=== PATIENT | male | born 1965 | race Asian ===

== ENCOUNTER 2020-02-17 01:59 | Emergency (ER) | payer OTHER ==
[~2020-02-17] VITALS: Ht 172.7 cm; Wt 97.5 kg
[2020-02-17 02:26] LABS: PLATELET COUNT 271 K/uL (142-355)
[2020-02-17 02:43] LABS: POTASSIUM 3.5 mmol/L (3.6-5.2)
[2020-02-17 03:45] VITALS: BP 168/96; TEMP 97.6
[2020-02-17] MEDS ORDERED: ALLO300T23 PO (05:24)
[2020-02-17] MEDS ORDERED: CADUET10 MG/10 M PO (05:25)
[2020-02-17] MEDS ORDERED: DULOXETINE HCL PO (05:27)
[2020-02-17] MEDS ORDERED: DULOXETINE PO (05:29)
[2020-02-17] MEDS ORDERED: IRON325 MG PO (05:30)
[2020-02-17] MEDS ORDERED: FURO20TA67 PO (05:31)
[2020-02-17] MEDS ORDERED: LABETALOL HYDR200 MG PO (05:32)
[2020-02-17] MEDS ORDERED: CLARITIN10 M1 PO (05:33)
[2020-02-17] MEDS ORDERED: [UNRECOGNIZED DRUG - OTHER] PO (05:34)
[2020-02-17] MEDS ORDERED: CLONIDINE HYDR0.2 MG PO (05:35)
[2020-02-17] MEDS ORDERED: POTASSIUM CHLO20 ME1 PO (05:36)
[2020-02-17] MEDS ORDERED: GABA400C2 PO (05:37)
[2020-02-17] MEDS ORDERED: HYDR25TA57 PO (05:38)
[2020-02-17] MEDS ORDERED: TIZANIDINE HYDRO2 M1 PO (05:40)
[2020-02-17] MEDS ORDERED: DOCU100C10 PO (05:41)
[2020-02-17] MEDS ORDERED: HYDR5TAB9 PO (05:42)
[2020-02-17] MEDS ORDERED: PROVENTIL108 MCG/AC INH (05:43)
[2020-02-24] MEDS ORDERED: DULO30CA PO (09:32)
[2020-03-07] MEDS ORDERED: IPRAAER INH (08:52)
[2020-03-07] MEDS ORDERED: ZINC220C4 PO (08:52)
[2020-03-07] MEDS ORDERED: CHOL100034 PO (08:52)
[2020-03-07] MEDS ORDERED: DEXA4TAB2 PO (08:52)
[2020-03-07] MEDS ORDERED: ASCO500T18 PO (08:52)
== END 2020-02-17 03:45 | disposition still patient (30) ==
LOC: ED 01:59
PROVIDERS: Emergency Medicine Emergency Medical Services
DX: F32.89 Other specified depressive episodes (principal); R46.89 Other symptoms and signs involving appearance and behavior; Z11.59 Encounter for screening for other viral diseases; Z04.6 Encounter for general psychiatric examination, requested by authority
CPT/HCPCS: 36415; 80053; 81000; 85027; 87635; 93005; 99283; 99285; U0003

== ENCOUNTER 2022-05-16 21:10 | Emergency (ER) | payer OTHER ==
[~2022-05-16 21:10] MED LIST: ALBUTEROL108 MCG/AC INH; ALLO300T23 PO; ASCO500T18 PO; CADUET10 MG/10 M PO; CHOL100034 PO; CLARITIN10 M1 PO; CLONIDINE HYDR0.2 MG PO; DEXA4TAB2 PO; DOCU100C10 PO; DULO30CA PO; DULOXETINE HCL PO; DULOXETINE PO; FURO40TA93 PO; GABA400C2 PO; HYDR25TA57 PO; HYDR5TAB9 PO; IPRAAER INH; IRON325 MG PO; LABETALOL HYDR200 MG PO; POTASSIUM CHLO20 ME1 PO; TIZANIDINE HYDRO2 M1 PO; ZINC220C4 PO; [UNRECOGNIZED DRUG - OTHER] PO
[2022-05-16 23:24] LABS: PLATELET COUNT 231 K/uL (142-355)
[2022-05-16 23:25] LABS: POTASSIUM 3.5 mmol/L (3.6-5.2)
[2022-05-17] MEDS ORDERED: AMLODIPINE BESYLATE PO (07:21)
[2022-05-17] MEDS ORDERED: ANORO ELLIPTA 61 AER INH (07:23)
[2022-05-17] MEDS ORDERED: DECUBI-VITE PO (07:25)
[2022-05-17] MEDS ORDERED: DIVA250T PO (07:26)
[2022-05-17] MEDS ORDERED: DECADRON4 MG PO (07:27)
[2022-05-17] MEDS ORDERED: LISI20TA11 PO (07:29)
[2022-05-17] MEDS ORDERED: MELATONIN5 M2 PO (07:30)
[2022-05-17] MEDS ORDERED: MOBIC15 MG PO (07:32)
[2022-05-17] MEDS ORDERED: OMEPRAZOLE DR40 MG PO (07:33)
[2022-05-17] MEDS ORDERED: TRAZ100T PO (07:36)
[2022-05-17] MEDS ORDERED: CETI10TA PO (07:37)
[2022-05-17] MEDS ORDERED: ARTIFICIAL TEARS1 % OPTH (07:39)
[2022-05-17] MEDS ORDERED: DIVALPROEX500 M1 PO (07:43)
[2022-05-17] MEDS ORDERED: BUDE1AER5 INH (07:49)
[2022-05-17] MEDS ORDERED: LYRICA 100 MG100 MG PO (07:51)
[2022-05-17] MEDS ORDERED: TUSSIN ADU100 MG/5 M PO (07:58)
[2022-05-17] MEDS ORDERED: IPRATROPIUM/ PO (08:00)
[2022-05-22] MEDS ORDERED: ALBU90AE13 INH (11:43)
[2022-05-22] MEDS ORDERED: NORVASC 5MG TAB PO (11:44)
[2022-05-22] MEDS ORDERED: ALLO100T22 PO (11:44)
[2022-05-22] MEDS ORDERED: CETI10TA PO (11:45)
[2022-05-22] MEDS ORDERED: CLON0.1T16 PO (11:45)
[2022-05-22] MEDS ORDERED: BUDE1AER5 INH (11:45)
[2022-05-22] MEDS ORDERED: DEXA4TAB2 PO (11:46)
[2022-05-22] MEDS ORDERED: DIVALPROEX250 MG PO (11:46)
[2022-05-22] MEDS ORDERED: DIVALPROEX500 MG PO (11:46)
[2022-05-22] MEDS ORDERED: DOCU100C10 PO (11:47)
[2022-05-22] MEDS ORDERED: FERROUS SULF325 MG PO (11:47)
[2022-05-22] MEDS ORDERED: FURO40TA93 PO (11:47)
[2022-05-22] MEDS ORDERED: Artificial Tears 0.2 OPTH (11:47)
[2022-05-22] MEDS ORDERED: MELATONIN MAXIMU5 MG PO (11:48)
[2022-05-22] MEDS ORDERED: PANTOPRAZOLE 40MG TA PO (11:48)
[2022-05-22] MEDS ORDERED: HYDR25TA57 PO (11:48)
[2022-05-22] MEDS ORDERED: LISI20TA11 PO (11:48)
[2022-05-22] MEDS ORDERED: LABETALOL 200 MG PO (11:48)
[2022-05-22] MEDS ORDERED: LYRICA50 MG PO (11:49)
[2022-05-22] MEDS ORDERED: TRAZ50TA36 PO (11:49)
[2022-05-22] MEDS ORDERED: POTA20TA4 PO (11:49)
== END 2022-05-16 23:10 | disposition still patient (30) ==
LOC: ED 21:10
PROVIDERS: Internal Medicine
DX: R45.1 Restlessness and agitation (principal); Z11.52 Encounter for screening for COVID-19; Z04.6 Encounter for general psychiatric examination, requested by authority
CPT/HCPCS: 36415; 80053; 81002; 85027; 87635; 93005; 99283; U0003